=== PATIENT | female | born 2000 | race Caucasian/White ===

== ENCOUNTER 2025-03-02 18:57 | Emergency (ER) | payer OTHER, SELFPAY ==
[2025-03-02 19:12] VITALS: BP 114/74; PULSE 99; RESP 18; TEMP 37.1; O2SAT 98; BMI 21.8
[2025-03-02 20:07] LABS: Ictotest Urine Negative (Negative)
[2025-03-02 20:21] LABS: Culture Indicated Urine Cult Not Indicated
[2025-03-02 20:22] LABS: COVID19 -Nasal RAPID Negative (Negative)
[2025-03-02 20:23] LABS: Add Manual Diff / Slide Review NO; Hematocrit 35.0 % (36-46); Hemoglobin 11.7 g/dL (12.0-16.0); Lymphocytes Absolute Auto 2100 /uL (1100-4500); Mean Corpuscular HGB Conc 33.3 % (30-36); Mean Corpuscular Hemoglobin 26.1 PG (26-34); Mean Corpuscular Volume 78.3 fL (80-100); Platelet Count 271 X10^3/uL (150-400)
[2025-03-02 20:24] LABS: Ur Creatinine Normal (Normal); Ur Specific Gravity Normal (Normal); Urine MDMA Negative (Negative); Urine Methamphetamines Negative (Negative); Urine THC Negative (Negative); Urine Tricyclic Antidepressant Negative (Negative); Urine pH Normal (Normal)
[2025-03-02 20:30] LABS: Acetaminophen < 10 ug/mL (10-30); Alanine Aminotransferase 17 IU/L (<35); Albumin 4.6 g/dL (3.5-5.0); Albumin Globulin Ratio 1.6 (1.0-2.8); Alkaline Phosphatase 39 U/L (38-126); Blood Urea Nitrogen 13 mg/dL (7-17); Calcium 9.8 mg/dL (8.4-10.2); Carbon Dioxide 23 mmol/L (22-32); Chloride 107 mmol/L (98-107); Estimated Glomerular Filt Rate > 60 mL/min (>60); Ethanol (ETOH) < 10 mg/dL (<10); Globulin 2.9 g/dL (1.7-4.1); Glucose 102 mg/dL (70-99); HEMOLYSIS < 15 (0-50); Potassium 3.6 mmol/L (3.4-5.1); Salicylate < 1.0 mg/dL (<20); Sodium 137 mmol/L (137-145); Total Protein 7.5 g/dL (6.3-8.2)
[2025-03-02 20:39] LABS: Lithium 0.5 mmol/L (0.6-1.2)
--- NOTE | 2025-03-02 20:46 | PC.NURSE ---
pt has been calmly laying in bed occasionally watching staff and continuously laughing to herself since she got settled into bed.
--- NOTE | 2025-03-02 21:12 | ED.PSYCH ---
HPI - Psych General Chief Complaint: Psychiatric Symptoms Stated Complaint: Want to be checked in for Mental Health Time Seen by Provider: 03/02/25 21:12 Source: patient Mode of arrival: Ambulatory History of Present Illness HPI Narrative: 24-year-old female with history of schizoaffective disorder, prior psychiatric admission 2 years ago for 3 weeks at [facility], previously taking Texanna and Abilify, was traveling today to [facility] with her parents who live in [place], with whom she has been living, she decided that she would not want to be with her parents anymore, and took the [facility] to [place] walked and then got a ride over to this emergency department for further evaluation, feeling that she might need to have further evaluation. She denied thoughts of hurting herself or others. She stated that she was homeless, did not want to be living with her parents anymore. She wanted to talk to group social worker when they are available later today. She previously had been prescribed lithium and Abilify, does not have recurrent medications. She requested that her parents not be contacted. Related Data Allergies Allergy/AdvReac Type Severity Reaction Status Date / Time No Known Drug Allergies Allergy Verified 03/03/25 00:34 Patient History Social History Smoking Status: Never smoker Smoking Status: Never smoker Exam Narrative Exam Narrative: GENERAL: Well-developed patient, in mild distress. HEAD: Atraumatic. Normocephalic. EYES: Pupils equal round and reactive. Extraocular motions intact. No scleral icterus. No injection or drainage. ENT: Nose without bleeding, purulent drainage. Throat without erythema, tonsillar hypertrophy or exudate. Airway patent. NECK: Trachea midline. Non tender CARDIOVASCULAR: Regular rate and rhythm without murmurs, gallops, or rubs. RESPIRATORY: Clear to auscultation. Breath sounds equal bilaterally. No wheezes, rales, or rhonchi. GASTROINTESTINAL: Abdomen soft, non-tender, nondistended. EXTREMITIES: No edema or joint tenderness. BACK: Nontender without deformity or crepitance. No flank tenderness. NEURO: AOx3. Motor functions grossly nonfocal. SKIN: No rash or erythema of visible areas Initial Vital Signs Initial Vital Signs: Vital Signs Temperature 98.8 F 03/02/25 19:12 Pulse Rate 99 H 03/02/25 19:12 Respiratory Rate 18 03/02/25 19:12 Blood Pressure 114/74 03/02/25 19:12 Pulse Oximetry 98 03/02/25 19:12 Oxygen Delivery Method Room Air 03/02/25 19:12 Course Orders Ordered: ED Orders 03/02/25 19:29 Consult to HORTICULTURAL MANAGER - Account Manager [employer] Stat 03/02/25 19:34 COVID19 -Nasal RAPID Stat 03/02/25 19:42 Ictotest Urine Stat Test Urine Stat Urine Drug Screen, Rapid Stat Urine Microscopic Stat 03/02/25 20:05 Acetaminophen Stat Complete Blood Count AUTO DIFF Stat Comprehensive Metabolic Panel Stat Ethanol (ETOH) Stat Free T4, Direct Thyroxine Stat Texanna Stat Salicylate Stat TSH w/ Reflex to FT4 Stat Discontinued Medications Lorazepam (Lorazepam 0.5 Mg Tablet) 1 mg PO NOW ONE Stop: 03/02/25 22:32 Vital Signs Vital signs: Vital Signs - 8 hr 03/02/25 19:12 03/02/25 22:00 Temperature 98.8 F 98.4 F Pulse Rate 99 H 72 Respiratory Rate 18 18 Blood Pressure 114/74 119/74 Pulse Oximetry 98 100 Oxygen Delivery Method Room Air Room Air MDM - Psych Lab Data Attestation: I reviewed the patient's lab results. Lab results narrative: White blood cell count 8400, hemoglobin 11.7, platelets adequate. Glucose 102. Normal renal function. Normal serum CO2 on electrolytes. Ethanol level negative. Urinalysis negative. UDS negative. Acetaminophen level and salicylate levels negative. 03/02/25 20:05 03/02/25 20:05 Labs: Lab Results 03/02/25 03/02/25 03/02/25 Range/Units 19:34 19:42 20:05 WBC 8.4 (4.5-11.0) X10^3/uL RBC 4.47 (4.0-5.2) X10^6/uL Hgb 11.7 L (12.0-16.0) g/dL Hct 35.0 L (36-46) % MCV 78.3 L (80-100) fL MCH 26.1 (26-34) PG MCHC 33.3 (30-36) % RDW 15.5 H (11.6-14.8) % Plt Count 271 (150-400) X10^3/uL Neut % (Auto) 69.5 (50-75) % Lymph % (Auto) 24.7 L (25-40) % [place] % (Auto) 4.2 (3-14) % Eos % (Auto) 0.9 L (2-4) % Baso % (Auto) 0.7 (0-2) % Neut # (Auto) 5800 (5022-5785) /uL Lymph # (Auto) 2100 (0176-5525) /uL [place] # (Auto) 400 (0-900) /uL Eos # (Auto) 100 (0-450) /uL Baso # (Auto) 100 (0-100) /uL Sodium 137 (137-145) mmol/L Potassium 3.6 (3.4-5.1) mmol/L Chloride 107 (98-107) mmol/L Carbon Dioxide 23 (22-32) mmol/L BUN 13 (7-17) mg/dL Creatinine 0.82 (0.52-1.04) mg/dL Estimated GFR > 60 (>60) mL/min BUN/Creatinine Ratio 15.9 (6-22) Glucose 102 H (70-99) mg/dL Calcium 9.8 (8.4-10.2) mg/dL Total Bilirubin 0.7 (0.2-1.3) mg/dL AST 29 (14-36) IU/L ALT 17 (<35) IU/L Alkaline Phosphatase 39 (38-126) U/L Total Protein 7.5 (6.3-8.2) g/dL Albumin 4.6 (3.5-5.0) g/dL Globulin 2.9 (1.7-4.1) g/dL Albumin/Globulin Ratio 1.6 (1.0-2.8) TSH 0.38 L (0.47-4.68) uIU/mL Free T4 1.00 (0.78-2.19) ng/dL Ur Bilirubin Confirm Negative (Negative) Urine RBC 0-1/hpf (0-5/HPF) Urine WBC None seen (0-5/HPF) Ur Squamous Epith Cells None seen (0-5/HPF) Calcium Oxalate Crystal Few H Urine Bacteria None seen (None) Ur Culture Indicated? Cult not indicated Vol Urine Centrifuged 10ml (spun) Urine Test Negative (Negative) Salicylates < 1.0 (<20) mg/dL U Opiates 300ng/mL cut Negative (Negative) Ur Oxycodone Screen Negative (Negative) Urine Methadone Screen Negative (Negative) Acetaminophen < 10 (10-30) ug/mL Ur Barbiturates Screen Negative (Negative) U Tricyclic Antidepress Negative (Negative) Ur Phencyclidine Scrn Negative (Negative) Ur Amphetamines Screen Negative (Negative) U Methamphetamines Scrn Negative (Negative) Ur MDMA Scrn (Ecstasy) Negative (Negative) U Benzodiazepines Scrn Negative (Negative) [place] 0.5 L (0.6-1.2) mmol/L Urine Cocaine Screen Negative (Negative) U Marijuana (THC) Screen Negative (Negative) Urine pH Normal (Normal) Urine Specific [place] Normal (Normal) Ethyl Alcohol < 10 (<10) mg/dL Ur Creatinine Normal (Normal) SARS-CoV-2 (PCR) Negative (Negative) Point of Care Testing Test Results Negative Urine Dip Bedside Urine Glucose Negative Bedside Urine Bilirubin + 1 Bedside Urine Ketone +/- 5 Urine Specific [place] 1.030 Bedside Urine Occult Blood +++ Bedside Urine pH 5.5 Bedside Urine Protein + 30 Bedside Urine Urobilinogen - Negative Bedside Urine Nitrite - Negative Bedside Urine Leukocytes - Negative Esterase MDM Narrative Medical decision making narrative: 24-year-old female with history of schizoaffective disorder previously on lithium and Abilify, feels that she wants to speak to social worker health services and might need inpatient psychiatric care. She denied thoughts of hurting herself or others. She would not want to be with her parents anymore with whom she had been living. She would not want her parents contacted. She apparently left her parents at [facility] and came here. Not aware that the parents know where she is. Requesting consultation with social worker health services. Lab data: White blood cell count 8400, hemoglobin 11.7, platelets adequate. Glucose 102. Normal renal function. Normal serum CO2 on electrolytes. Ethanol level negative. Urinalysis negative. UDS negative. Acetaminophen level and salicylate levels negative. 2229, patient apparently eloped from room 13. She had apparently ran out the ED doors. Per nursing notes. No SI/HI, no IV in place, but patient had reported that she was homeless, and had no family nearby, parents in [place]. Law enforcement made aware. Discharge Plan Departure Patient Disposition: Elopement Clinical Impression: Schizoaffective disorder
--- NOTE | 2025-03-02 21:34 | PC.NURSE ---
pt requested a book to read, I provided a book to the patient and she has been laying in bed reading peacefully.
[2025-03-02 21:36] LABS: TSH w/ Reflex to FT4 0.38 uIU/mL (0.47-4.68)
[2025-03-02 22:00] VITALS: BP 119/74; PULSE 72; RESP 18; TEMP 36.9; O2SAT 100
[2025-03-02 22:01] LABS: Free T4, Direct Thyroxine 1.00 ng/dL (0.78-2.19)
--- NOTE | 2025-03-02 22:33 | PC.NURSE ---
Pt out of exam room asking questions re: plan of care. Informed patient that [facility] would be here in the AM to assist with resources. Pt states I'd rather just leave and come back in the morning. Explained to patient that wasn't an option at this time d/t statements of thoughts of hurting self. Pt states I'd rather just sit in the waiting room. Again explained to patient that wasn't an option, the current exam room is where she would be staying for the evening. Pt states Okay, yeah, sure. and walks back into exam room. Pt then states she needs something from her bag. Explained that the only thing she would be allowed to have would be her phone but she was unwilling to state where phine was for RN to retrieve for her. Allowed pt to have sitter go through bag with her to find phone. Pt continues to be vague of where phone is while sitter is looking through bag. Pt grabs bag and runs out ambulance doors. Pt currently remained in green disposable scrubs and had 1 [facility] sock on. November, charge preparation technician and Dr. Carlos made aware and at ambulance doors to witness patient leaving parking lot.
--- NOTE | 2025-03-02 22:45 | PC.NURSE ---
Call to [place] [facility] due to pt elopement.
== END 2025-03-02 23:11 | disposition left against medical advice (07) ==
PROVIDERS: Emergency Provider Emergency Medicine
DX: F25.9 Schizoaffective disorder, unspecified (principal)
CPT/HCPCS: 36415; 80053; 80178; 80305; 80320; 80329; 81003; 81015; 81025; 84439; 84443; 85025; 87635; 99284; G0480

== ENCOUNTER 2025-03-02 23:50 | Emergency (ER) | payer OTHER, SELFPAY ==
[2025-03-03 00:33] VITALS: BMI 22.5
[2025-03-03 00:35] VITALS: BP 119/68; PULSE 82; RESP 20; TEMP 36.8; O2SAT 98
--- NOTE | 2025-03-03 00:57 | PC.NURSE ---
Pt awake and alert, cooperative at this time. Pt changes into hospital provided disposable clothing and gives belongings to RN which are placed in the med room with a patient sticker. Pt agrees to oral sedative to assist with rest and takes medication when it is presented. Pt refuses imaging of right knee stating she doesn't feel it is necessary. Right knee abrasion cleaned with soap and water with topical antibiotic applied at this time. Pt offered food and oral hydration but refuses at this time. Pt given warm blankets and settled into ED stretcher. Pt observer remains within line of vision. No further complaints or needs at this time.
[2025-03-03] MEDS: BACITRACIN OINT 0.9 GM PCKT 1 APPLIC TOP (01:04)
--- NOTE | 2025-03-03 01:16 | ED_ITS ---
HPI - Psych General Chief Complaint: Psychiatric Symptoms Stated Complaint: R Knee Pain Time Seen by Provider: 03/03/25 00:35 Source: patient Mode of arrival: Ambulatory History of Present Illness HPI Narrative: 24-year-old female with history of schizoaffective disorder had left her parents from visit with [facility], coming here for initial evaluation requesting mental health services, no SI/HI, then eloped from the emergency department, on the running out way out she struck her right knee onto the emergency department door. She returned with left knee abrasion pain. She seems agreeable now to stay for mental health evaluation. Still does not endorse thoughts of hurting herself or others. Related Data Allergies Allergy/AdvReac Type Severity Reaction Status Date / Time No Known Drug Allergies Allergy Verified 03/03/25 00:34 Patient History Social History Smoking Status: Never smoker Smoking Status: Never smoker Exam Narrative Exam Narrative: GENERAL: Well-developed patient. HEAD: Atraumatic. Normocephalic. EYES: Pupils equal round and reactive. Extraocular motions intact. No scleral icterus. No injection or drainage. ENT: Nose without bleeding, purulent drainage. Throat without erythema, tonsillar hypertrophy or exudate. Airway patent. NECK: Trachea midline. Non tender CARDIOVASCULAR: Regular rate and rhythm without murmurs, gallops, or rubs. RESPIRATORY: Clear to auscultation. Breath sounds equal bilaterally. No wheezes, rales, or rhonchi. GASTROINTESTINAL: Abdomen soft, non-tender, nondistended. EXTREMITIES: No edema or joint tenderness. Left knee with medial abrasion, no gross knee effusion, flexes and extends knee normally. Was ambulatory and weight-bearing. BACK: Nontender without deformity or crepitance. No flank tenderness. NEURO: AOx3. Motor functions grossly nonfocal. PSYCH: not agitated, cooperative, clear speech, denies SI/HI, no flight of ideas. SKIN: No rash or erythema of visible areas Initial Vital Signs Initial Vital Signs: Vital Signs Temperature 98.2 F 03/03/25 00:35 Pulse Rate 82 03/03/25 00:35 Respiratory Rate 20 03/03/25 00:35 Blood Pressure 119/68 03/03/25 00:35 Pulse Oximetry 98 03/03/25 00:35 Oxygen Delivery Method Room Air 03/03/25 00:35 Course Orders Ordered: Discontinued Medications Bacitracin (Bacitracin Oint 0.9 Gm Pckt) 1 applic TOP NOW ONE Stop: 03/03/25 01:02 Last Admin: 03/03/25 01:04 Dose: 1 applic Documented By: AICHA Lorazepam (Lorazepam 0.5 Mg Tablet) 1 mg PO NOW ONE Stop: 03/03/25 00:36 Last Admin: 03/03/25 00:43 Dose: 1 mg Documented By: AICHA Vital Signs Vital signs: Vital Signs - 8 hr 03/03/25 00:35 Temperature 98.2 F Pulse Rate 82 Respiratory Rate 20 Blood Pressure 119/68 Pulse Oximetry 98 Oxygen Delivery Method Room Air MDM - Psych MDM Narrative Medical decision making narrative: 24-year-old female with schizoaffective disorder eloped from the emergency department a few hours ago after initially requesting social and political studies professor, stating that she was homeless and left her parents who live in [place], does not want them to be contacted, feels that she wants help, mental health services through Dr. Jackson. No current HI/SI symptoms. Laboratory data from previous visit a couple of hours ago before she eloped: White blood cell count 8400, hemoglobin 11.7, platelets adequate. Glucose 102. Normal renal function. Normal serum CO2 on electrolytes. Ethanol level negative. Urinalysis negative. UDS negative. Acetaminophen level and salicylate levels negative. X-ray right knee ordered, patient refused. Patient seems to have normal range of motion and weight-bearing. Antibiotic ointment applied to abrasion. Oral Ativan given. director of career services consultation later this morning when available. Homeless, mental health disorder, departed from parents whom she does not want contacted. Evaluate for safe disposition plan. 0245, patient now we would like to go home, wants to call her family for a ride home to [place]. She was provided phone to make communication arrangements. Patient again departed the department, eloped, left without DC instructions. No IV was in place per RN. RN to report incident(s) to social and political studies professor for further followup in the morning. Discharge Plan Departure Patient Disposition: Elopement Clinical Impression: Schizoaffective disorder
--- NOTE | 2025-03-03 02:42 | PC.NURSE ---
Pt advised this nurse she would like to leave at this time. Provider notified.
--- NOTE | 2025-03-03 03:01 | PC.NURSE ---
RN returned from break and noted pt out of exam room in hallway speaking with another RN and pt observer. Informed that pt had been allowed to make a phone call to parents and message left for them to come cloth picker pt. Pt able to be escorted back into exam room. Pt immediately returns to hallway and continued discussion about plan of care where another call to parent can be made when the sun comes up and POST MANAGER consult at 9am. Pt states Yeah, ok. and returns to exam room again. Pt then out to hallway again stating I'd really just like to leave now. I want to at least get... Pt informed she would not be allowed to get anything from belongings. Pt asks What happens if I walk out like I did before? Informed pt that law enforcement would be contacted. Pt again asked to return to exam room for all involved safety. Pt states I just think I'll leave. I just can't have my things? Confirmed she would not be given her belongings. Pt walks down towards DI hallway. Informed that was not an exit, attempted to contact security [employer] at this time but states no one is logged in at this time. Pt turns around and walks back towards exam room, stops at ambulance entrance and starts to walk out. RN and pt observer continue to attempt to get pt back in exam room. Pt walks out of ambulance bay doors, turns around and asks for belongings again where she is again told no. I can't have any of my things? No. Ambulance doors begin to close infront of pt, RN opens again in an attempt for patient to come back in. Pt turns and walks away. Dr. Carlos and SALVADOR Gambino charge aware and in close proximity during event and aware that pt has left.
--- NOTE | 2025-03-03 03:02 | PC.NURSE ---
PT out of bed asking to leave voluntarily. Spoke with physician and together decided to wait until the morning as it is safer or parents come to get her. Pt called parents and got no response. Pt back to bed briefly before exiting room and asking if she can stay in the waiting room area. RN explained that she would need to be discharged to do that. Pt pacing back and forth. Discussion with RNs regarding her safety and meeting with social services manager tomorrow. Pt still wanting to leave. RN described that she can voluntarily leave but the director of physiotherapy services will be called. Pt looking for exit and wandered in wrong direction before finding exit. Pt upset that she was leaving without her belongings but left on her own.
--- NOTE | 2025-03-03 04:43 | PC.NURSE ---
Pt returned to facility to call for a ride. She was given a Taxi voucher from a hotel. She states that they open at 5 am. Advised her that they don't normally open until around 6 am. She is ok to wait in lobby, but since this is a locked unit she can not continue to go in and out of the facility. Advised pt that we need to see and speak to her ride when they arrive.
--- NOTE | 2025-03-03 06:48 | PC.NURSE ---
Pt continues to wander the hospital facility asking for her belongings. Pt reminded multiple times that we need to have eyes on her ride home prior to giving her the large pt belongings bag.
== END 2025-03-03 07:52 | disposition left against medical advice (07) ==
PROVIDERS: Emergency Provider Emergency Medicine
DX: F25.9 Schizoaffective disorder, unspecified (principal)